=== PATIENT | female | born 1950 | race Asian ===

== ENCOUNTER 2021-05-19 21:58 | Emergency (ER) | payer MEDICARE ==
[~2021-05-19] VITALS: Ht 147.3 cm; Wt 70.0 kg
[2021-05-19] MEDS ORDERED: LABETALOL 5MG/ML, 20ML ONE (23:28)
[2021-05-19] MEDS ORDERED: MECLIZINE CHEWABLE 25 MG TAB ONE (23:28)
[2021-05-19 23:30] LABS: BASOPHILS % (AUTO) 1 % (0-1); EOSINOPHILS % (AUTO) 6 % (1-7); LYMPHOCYTES % (AUTO) 41 % (22-44); MEAN CORPUSCULAR HEMOGLOBIN 28.5 pg (27.0-34.8); MEAN CORPUSCULAR HGB CONC 34.5 g/dL (32.4-35.8); MEAN PLATELET VOLUME 7.6 fL (7.4-10.4); MONOCYTES % (AUTO) 7 % (2-9); NEUTROPHILS % (AUTO) 46 % (42-75); PLATELET COUNT 304 x10^3/uL (130-400); RED BLOOD COUNT 4.66 x10^6/uL (3.82-5.3); RED CELL DISTRIBUTION WIDTH 16.1 % (9.6-15.2)
[2021-05-19] MEDS ORDERED: PLEASE ENTER ALLERGIES MC SCH (23:30)
[2021-05-19] MEDS ORDERED: MECLIZINE CHEWABLE 25 MG TAB PO ONE (23:30)
[2021-05-19] MEDS ORDERED: LABETALOL 5MG/ML, 20ML IVPush ONE (23:30)
[2021-05-19 23:35] LABS: ALANINE AMINOTRANSFERASE 30 U/L (12-78); ALBUMIN 3.7 g/dL (3.4-5.0); ANION GAP 4 mmol/L (5-15); CALCIUM 9.2 mg/dL (8.5-10.1); CHLORIDE 110 mmol/L (98-107); CREATININE 0.78 mg/dL (0.55-1.02)
[2021-05-19 23:40] LABS: ALKALINE PHOSPHATASE 64 U/L (45-117); BILIRUBIN,TOTAL 0.3 mg/dL (0.2-1.0); TOTAL PROTEIN 7.7 g/dL (6.4-8.2); TROPONIN I < 0.015 ng/mL (0.000-0.045)
--- NOTE | 2021-05-19 23:43 | NUR ---
IV STARTED. MEDICATED PER MAR
--- NOTE | 2021-05-20 00:13 | NUR ---
PT CAME IN CO DIZZINESS AND VERTIGO. PT REPORTS HAVING HX OF VERTIGO. PT MEDICATED PER JAN. CONNECTED TO MONITORS.
[2021-05-20 02:02] VITALS: BP 138/79
[2021-05-20] MEDS ORDERED: OMNIPAQUE 350 MG/ML, 100ML BOTTLE ONE (02:50)
== END 2021-05-20 02:04 | disposition home or self-care (01) ==
LOC: ED 23:00
DX: H81.393 Other peripheral vertigo, bilateral (principal); H81.13 Benign paroxysmal vertigo, bilateral; I10 Essential (primary) hypertension
CPT/HCPCS: 36415; 70450; 70496; 70498; 71045; 80053; 84484; 85025; 93005; 96374; 99285; Q9967